=== PATIENT | female | born 2000 | race Caucasian/White ===

== ENCOUNTER 2023-10-26 16:51 | Emergency (ER) | payer BC ==
[~2023-10-26] VITALS: Ht 157.5 cm; Wt 74.8 kg
[~2023-10-26 16:51] MED LIST: AZITHROMYCIN250 MG PO; no meds
[2023-10-26 17:48] LABS: INFLUENZAE A&B ANTIGEN (RAPID) NEGATIVE (NEGATIVE); RESPIRATORY SYNC. VIRUS NEGATIVE (NEGATIVE); STREPTOCOCCUS GRP A ANTIGEN NEGATIVE (NEGATIVE)
[2023-10-26] MEDS ORDERED: KETOROLAC TROMETHAMINE 30 MG/ML VIAL ONE (19:24)
[2023-10-26] MEDS ORDERED: DEXAMETHASONE SOD PHOS 10 MG/1 ML VIAL ONE (19:24)
[2023-10-26] MEDS: DEXAMETHASONE SOD PHOS 10 MG/1 ML VIAL IM ONE (19:25)
[2023-10-26] MEDS: KETOROLAC TROMETHAMINE 30 MG/ML VIAL IM STA (19:26)
[2023-10-26 19:28] VITALS: O2SAT 100
[2023-10-26] MEDS ORDERED: DEXAMETHASONE4 MG PO (20:04)
[2023-10-27] MEDS ORDERED: KETOROLAC TROMETHAMINE 30 MG/ML VIAL ONE (19:37)
[2023-10-27] MEDS ORDERED: DEXAMETHASONE SOD PHOS 10 MG/1 ML VIAL ONE (19:37)
== END 2023-10-26 20:11 | disposition home or self-care (01) ==
LOC: ER 17:01
DX: R50.9 Fever, unspecified (principal); J02.9 Acute pharyngitis, unspecified; R11.0 Nausea; Z11.52 Encounter for screening for COVID-19
CPT/HCPCS: 83518; 87070; 87400; 87420; 99283; J1100; J1885; U0002

== ENCOUNTER 2024-04-18 00:49 | Emergency (ER) | payer BC ==
[~2024-04-18] VITALS: Ht 152.4 cm; Wt 77.1 kg
[~2024-04-18 00:49] MED LIST changes: +DEXAMETHASONE4 MG PO
[2024-04-18 00:54] VITALS: PULSE 96; RESP 20; TEMP 99.6; O2SAT 99
[2024-04-18] MEDS ORDERED: ONDANSETRON HCL INJ 2MG/ML 2ML 2 MG/ML VIAL IV STA (00:57)
[2024-04-18] MEDS: ONDANSETRON HCL 4 MG ORAL DISINTEGRATING TAB PO ONE (01:05)
[2024-04-18] MEDS ORDERED: ONDANSETRON HCL 4 MG ORAL DISINTEGRATING TAB ONE (01:07)
[2024-04-18 01:31] LABS: BILIRUBIN,URINE NEGATIVE (NEGATIVE); CLARITY,URINE SL CLOUDY (CLEAR); COLOR,URINE YELLOW (YELLOW); GLUCOSE, URINE NEGATIVE (NEGATIVE); KETONES,URINE NEGATIVE (NEGATIVE); LEUKOCYTE ESTERASE ,URINE NEGATIVE (NEGATIVE); NITRITE,URINE NEGATIVE (NEGATIVE); PH,URINE 5.5 (5 - 7); PROTEIN,URINE DIPSTICK NEGATIVE (NEGATIVE); URINE UROBILINOGEN 0.2 mg/dL (0.2 - 1)
[2024-04-18 01:32] LABS: PREGNANCY TEST, URINE NEGATIVE (NEGATIVE)
[2024-04-18 01:38] LABS: INFLUENZAE A&B ANTIGEN (RAPID) NEGATIVE (NEGATIVE); RESPIRATORY SYNC. VIRUS NEGATIVE (NEGATIVE)
[2024-04-18 01:48] LABS: BACTERIA,URINE MANY /HPF; EPITHELIAL CELLS,URINE MODERATE /LPF
[2024-04-18] MEDS ORDERED: PROTONIX20 MG PO (01:57)
[2024-04-18] MEDS ORDERED: ONDANSETRON ODT4 MG PO (01:57)
== END 2024-04-18 02:01 | disposition home or self-care (01) ==
LOC: ER 00:55
DX: R11.2 Nausea with vomiting, unspecified (principal); R10.13 Epigastric pain; R51.9 Headache, unspecified; Z11.52 Encounter for screening for COVID-19
CPT/HCPCS: 81001; 81025; 83518; 87070; 87400; 87420; 99283; Q0162; U0002